=== PATIENT | male | born 1955 | race Caucasian/White ===

== ENCOUNTER 2017-02-19 23:36 | Inpatient (IN) ==
[2017-02-20 00:02] LABS: Basophils # 0.1 10*3/uL (0.0-0.2); Basophils % 0.8 % (0.0-0.8); Eosinophils # 0.3 10*3/uL (0.0-0.87); Eosinophils % 3.4 % (0.00-10.9); Hematocrit 47.4 VOL% (42.0-52.0); Hemoglobin 16.4 GM/DL (14.0-18.0); Immature Granulocytes % 0.7 %; Immature Granulocytes Absolute 0.07 #; Lymphocytes # 4.8 10*3/uL (1.4-4.0); Lymphocytes % 47.9 % (21.2-54.2); Mean Corpuscular HGB Conc 34.6 GM/DL (32-36); Mean Corpuscular Hemoglobin 32 PG (27-34); Mean Corpuscular Volume 92.4 FL (87-102); Mean Platelet Volume 9.9 FL (9.6-12.0); Monocytes # 0.6 10*3/uL (0.11-0.8); Monocytes % 6.2 % (1.7-12.7); Neutrophils # 4.1 10*3/uL (1.4-7.4); Platelet Count 218 T/CUMM (130-400); Red Blood Count 5.13 MC/CUMM (3.8-5.5); Red Cell Distribution Width 13.2 % (9.3-17.3); White Blood Count 9.9 T/CUMM (4-12)
[2017-02-20 00:07] LABS: INR 0.9; PT Patient Result 9.8 SECS
[2017-02-20 00:22] LABS: Albumin 3.5 G/DL (3.4-5.0); Bilirubin,Direct 0.1 MG/DL (0.0-0.20); Bilirubin,Indirect 0.4 MG/DL (0.0-1.0); Bilirubin,Total 0.5 MG/DL (0.2-1.0); Calcium 8.7 MG/DL (8.5-10.1); Magnesium 2.1 MG/DL (1.8-2.4); Osmolality,Calculated 285.1 MOS/KG (273-304); Potassium 3.6 MMOL/L (3.5-5.1); Total Protein 7.5 G/DL (6.4-8.3); Troponin I Only 0.017 NG/ML (0.00-0.045)
[2017-02-20] MEDS ORDERED: FUROSEMIDE 40 MG/4 ML VIAL IV STA (00:55)
--- NOTE | 2017-02-20 01:28 | Emergency Department Note ---
Jesika Alcocer Rolonda, am scribing for, and in the presence of, Sanchez Wood M.D. 00:08. Nina Alcocer Howard T, M.D., personally performed the services described in this documentation, ascribed by Linda Canchola in my presence, and it is both accurate and complete . Arrival - Arrival Chief Complaint: Shortness of Breath Stated Complaint: SOB ED Nursing Triage Note: Patient to ED via EMS with c/o SOB that onset suddenly at home while wearing his BIPAP. Patient coughed up pink frothy sputum [employer] and initial o2 sat on the bipap was 94% Patient arrives to ED with PEEP of 10 and o2 sat of 98% Mode of Arrival: Stretcher Limitations: No Limitations Source: Patient, Significant other (), EMS, Old Records Reviewed, RN Notes Reviewed Time Seen by Provider: 02/19/17 23:45 - History of Present Illness HPI Narrative: Pt is a 62 y/o male who was brought to the ED via EMS wearing BIPAP for further evaluation of SOB with an onset of minutes ago. Pt has a PMHx of Cardiovascular problems. states that they were at home in the bed and pt was wearing BIPAP mask when pt got up to use the restroom. stated that pt began to cough saying that he could not breathe and began to cough up "pink stuff". also noted that pt has been very drowsy 2-3 days. EMS stated that pt was given 2 NTG tablets [employer]; pt was given Lasix 40mg in ED. Pt stated that he has had the cough for over a month now. No other complaint/pain in ED. Onset (ago): minute(s) Consistency: constant Severity: moderate, severe Severity scale (1-10): 6 Allergies/Adverse Reactions: Allergies Allergy/AdvReac Type Severity Reaction Status Date / Time Rmxdpnp-Bpd-Tah Reductase Allergy Weakness Verified 02/19/17 23:49 Inhibitor Home Medications: Home Medications Medication Instructions Recorded Confirmed Type Aspirin EC Tab 81 mg PO DAILY 05/07/15 02/19/17 History Atenolol 1 tablet PO DAILY 05/07/15 02/19/17 History Baclofen Tab [Lioresal] 10 mg PO TID 05/07/15 02/19/17 History Clopidogrel [Plavix] 75 mg PO DAILY 05/07/15 02/19/17 History Duloxetine HCl [Cymbalta] 60 mg PO DAILY 05/07/15 02/19/17 History Zolpidem Tartrate [Ambien] 10 mg PO BEDTIME 05/07/15 02/19/17 History rOPINIRole [Requip] 3 mg PO TID 05/07/15 02/19/17 History Review of System - Review of System Constitutional: Absent: chills, fever Eyes: Absent: discharge, redness Head/Ears/Nose/Throat: Absent: earache, epistaxis Respiratory: Present: cough, respiratory distress Gastrointestinal: Absent: abdominal pain, nausea, vomiting, diarrhea Genitourinary male: Absent: dysuria Musculoskeletal: Absent: arm pain, back pain, leg pain, neck pain Skin: Absent: rash Neurological: Absent: headache, numbness Medical,Surgical,& Family Hx - Medical History Cardio: History of: CAD, Hypertension Psychological: History of: Depression Endocrine: History of: Dyslipidemia Rheumatology: History of;: Gout Respiratory: History of: Obstructive Sleep Apnea Gastrointestinal: History of: Bowel Obstruction, Diverticulitis/ Diverticulosis , GI Problems (IBS) Musculoskeletal: History of: Musculoskeletal Problems (RLS) Other: History of: Miscellaneous Medical Problems (rhabdomyolosis 03/19) - Surgical History Cardiac Surgeries: Sugical HX of: Cardiac Catheterization (stents in 2009) Abdominal Surgeries: Surgical HX of: Abdominal Surgery (bowel resection), Cholecystectomy, Hernia Repair (umbilical) Orthopedic Surgeries: Surgical HX of;: Orthopedic Surgery (rt rotator cuff 10/19) - Social History Smoking Status: Never smoker Frequency of Alcohol Use: None Type of Drug Use: None Exam Vital Signs: Vital Signs Temperature 96.5 F L 02/19/17 23:41 Pulse Rate 92 H 02/19/17 23:41 Respiratory Rate 23 02/19/17 23:41 Blood Pressure 147/104 02/19/17 23:41 O2 Sat by Pulse Oximetry 98 02/19/17 23:41 - General General appearance: alert, in no apparent distress, obese - Head Head exam: Present: atraumatic, normocephalic - Eye Eye exam: Present: PERRL, EOMI - ENT ENT exam: Present: mucous membranes moist. Absent: mucous membranes dry - Neck Neck exam: Present: full ROM. Absent: tenderness - Chest Chest inspection: Present: symmetric chest wall rise. Absent: tenderness - Respiratory Respiratory exam: Present: rales (bilaterally), respiratory distress (acute) - Cardiovascular Cardiovascular exam: Present: regular rate, normal rhythm, normal heart sounds. Absent: bradycardia - Abdominal Exam Abdominal exam: Present: soft, normal bowel sounds. Absent: tenderness Course Course Narrative: Medical decision making: History and exam suggest pulmonary edema although patient states he is actually feeling improved with Lasix and CPAP. His vital signs have remained stable and he denies feeling fatigued. We have discussed with hospitalist for admission and deferred intubation for the time being. - Reevaluation(s) Reevaluation #1: Patient continues to feel improved, not worse vital signs continue to improve, he requested we will remove the CPAP, CPAP was removed he was placed on nasal cannula and is saturations remain in the upper 90% and he appeared to remain comfortable and states that he feels much better. His exam is significant for continued crackles diffusely lungs bilaterally. Have noted his d-dimer is mildly elevated however he continues to clinically improve and I do not believe a CT scan of his chest is completely necessary at this time or would be a good idea with his recent respiratory distress therefore will defer further evaluation if indicated to hospitalist. Results - Labs CBC & BMP: 02/19/17 23:44 02/19/17 23:44 Lab Results: I have reviewed the patients labs Labs: Laboratory Tests 02/19/17 02/19/17 02/19/17 23:44 23:44 23:44 WBC 9.9 RBC 5.13 Hgb 16.4 Hct 47.4 Plt Count 218 Lymph # (Auto) 4.8 H INR 0.9 PT Patient/Control Mix 9.8 D-Dimer, Quantitative Sodium 142 Potassium 3.6 Chloride 107 Carbon Dioxide 26 BUN 14 GFR Calculation 85 Glucose 140 H B-Natriuretic Peptide 02/19/17 02/19/17 23:44 23:44 WBC RBC Hgb Hct Plt Count Lymph # (Auto) INR PT Patient/Control Mix D-Dimer, Quantitative 1.3 Sodium Potassium Chloride Carbon Dioxide BUN GFR Calculation Glucose B-Natriuretic Peptide 108 H - EKG EKG results: interpreted by ERMD, sinus rhythm, normal axis, normal QRS, normal ST/T, no acute changes (HR 87) Critical Care Time Critical Care Time: Yes Total Critical Care Time: 25 Attestation: Resp distress monitoring vitals and pt status, discussing intubation vs CPAP, adjusting CPAP Disposition Clinical Impression: Respiratory distress, Pulmonary edema Case discussed with: patient, patient's family Disposition: Still a Patient Condition: Guarded Time of Disposition: 00:37
[2017-02-20] MEDS ORDERED: FUROSEMIDE 40 MG/4 ML VIAL ONE (01:29)
--- NOTE | 2017-02-20 01:48 | Hospitalist History & Physical ---
Assessment and Plan (1) Shortness of breath Status: Acute Current Visit: Yes (2) COPD exacerbation Status: Acute Current Visit: Yes (3) History of obstructive sleep apnea Status: Acute Current Visit: Yes (4) History of coronary artery disease Status: Acute Current Visit: Yes (5) Respiratory distress Status: Acute Current Visit: Yes (6) Pulmonary edema Status: Acute Assessment and plan: Our plan for this patient will be admitting him to our service. Patient is to be on a monitor. His history is consistent with flash pulmonary edema. He does have crackles on exam. He is received 80 of Lasix. He is he is not on diuretics at home. He also sounds like COPD and per review of his x-ray there is appearance of scarring that is gone back for several years. Patient denies a history of COPD and has never smoked. He has both crackles and rhonchi on exam currently. I will schedule him some breathing treatments put him on some antibiotics and monitor how he improves. I am going to ask for a pulmonary consult BNP was only mildly elevated barely over 100. He does not have a history of heart failure. And he is compliant with his CPAP. Current Visit: Yes History of Present Illness Chief complaint: Shortness of breath History of present illness: Mr. Quintero is a 62 year old male with past medical history significant for coronary artery disease, hypertension, increased cholesterol, restless leg syndrome, irritable bowel syndrome and obstructive sleep apnea who was in his normal state of health till today. Patient said he has been, sleepy lately has been nodding off real easy. He has not been drinking as much coffee as he used to and this would be attributed to the symptoms 2. He started having a coughing spell tonight. He said he has had this chronic cough for about 2 months. He was coughing up some P tinged sputum. He could not catch his breath and could not take a deep breath. He got concerned that he was going to get in respiratory distress and called out to his daughter and had her call EMS. Patient was brought in our emergency room with significant respiratory distress. He received Lasix in the ER and in route. Patient pretty much feels better. I was consulted to admit him to the emergency room. Home Medications Medication Instructions Recorded Confirmed Type Aspirin EC Tab 81 mg PO DAILY 05/07/15 02/19/17 History Atenolol 1 tablet PO DAILY 05/07/15 02/19/17 History Baclofen Tab [Lioresal] 10 mg PO TID 05/07/15 02/19/17 History Clopidogrel [Plavix] 75 mg PO DAILY 05/07/15 02/19/17 History Duloxetine HCl [Cymbalta] 60 mg PO DAILY 05/07/15 02/19/17 History Zolpidem Tartrate [Ambien] 10 mg PO BEDTIME 05/07/15 02/19/17 History rOPINIRole [Requip] 3 mg PO TID 05/07/15 02/19/17 History Allergies Allergy/AdvReac Type Severity Reaction Status Date / Time Sjbbwnh-Zob-Eld Reductase Allergy Weakness Verified 02/19/17 23:49 Inhibitor Medical,Surgical,& Family Hx - Medical History Cardio: History of: CAD, Hypertension Psychological: History of: Depression Endocrine: History of: Dyslipidemia Rheumatology: History of;: Gout Respiratory: History of: Obstructive Sleep Apnea Gastrointestinal: History of: Bowel Obstruction, Diverticulitis/ Diverticulosis , GI Problems (IBS) Musculoskeletal: History of: Musculoskeletal Problems (RLS) Other: History of: Miscellaneous Medical Problems (rhabdomyolosis 03/19) - Surgical History Cardiac Surgeries: Sugical HX of: Cardiac Catheterization (stents in 2009) Abdominal Surgeries: Surgical HX of: Abdominal Surgery (bowel resection), Cholecystectomy, Hernia Repair (umbilical) Orthopedic Surgeries: Surgical HX of;: Orthopedic Surgery (rt rotator cuff 10/19) - Family History Family History: Reports;: Family Heart Disease - Social History Smoking Status: Never smoker Frequency of Alcohol Use: None Type of Drug Use: None 12 point system: reviewed and no additional remarkable complaints except as stated Exam - Constitutional Vitals: Period Temp Pulse Resp BP Sys/Benjamin Pulse Ox Last 24 Hr 96.5 F-96.5 F 92-92 23-24 142-147/104-104 98 General appearance: over weight - Eye Eye exam: Present: EOMI Pupils: Present: MIRLANDE - ENT ENT exam: Present: normal exam - Neck Neck exam: Present: normal inspection - Respiratory Respiratory exam: Present: rales, rhonchi, wheezes (Slight) - Cardiovascular Cardiovascular exam: Present: regular rate and rhythm - GI/Abdominal GI/Abdominal exam: Present: normal bowel sounds - Extremities Exam Extremities exam: Present: normal inspection - Back Exam Back exam: Present: normal inspection - Neurological Exam Neurological exam: Present: alert - Psychiatric Psychiatric exam: Present: normal affect - Skin Skin exam: Present: normal color Results - Labs CBC & BMP: 02/19/17 23:44 02/19/17 23:44
[2017-02-20] MEDS ORDERED: ONDANSETRON 4 MG/2 ML VIAL IV PRN (02:03)
[2017-02-20] MEDS ORDERED: ACETAMINOPHEN 325 MG TABLET PO PRN (02:03)
[2017-02-20] MEDS ORDERED: cefTRIAXone 1,000 MG in SODIUM CHLORIDE 0.9% 100 ML IV SCH (03:00)
[2017-02-20 06:26] LABS: Basophils # 0.1 10*3/uL (0.0-0.2); Basophils % 0.4 % (0.0-0.8); Eosinophils # 0.1 10*3/uL (0.0-0.87); Eosinophils % 1.1 % (0.00-10.9); Hematocrit 45.4 VOL% (42.0-52.0); Hemoglobin 15.7 GM/DL (14.0-18.0); Immature Granulocytes % 0.6 %; Immature Granulocytes Absolute 0.08 #; Lymphocytes # 2.7 10*3/uL (1.4-4.0); Lymphocytes % 21.5 % (21.2-54.2); Mean Corpuscular HGB Conc 34.6 GM/DL (32-36); Mean Corpuscular Hemoglobin 32 PG (27-34); Mean Corpuscular Volume 92.3 FL (87-102); Mean Platelet Volume 9.5 FL (9.6-12.0); Monocytes # 0.9 10*3/uL (0.11-0.8); Monocytes % 7.1 % (1.7-12.7); Neutrophils # 8.7 10*3/uL (1.4-7.4); Neutrophils % 69.3 % (38.7-73.9); Platelet Count 197 T/CUMM (130-400); Red Blood Count 4.92 MC/CUMM (3.8-5.5); Red Cell Distribution Width 13.4 % (9.3-17.3); White Blood Count 12.5 T/CUMM (4-12)
[2017-02-20 07:01] LABS: Albumin 3.5 G/DL (3.4-5.0); Bilirubin,Total 1.3 MG/DL (0.2-1.0); Osmolality,Calculated 287.8 MOS/KG (273-304); Potassium 4.1 MMOL/L (3.5-5.1)
--- NOTE | 2017-02-20 07:47 | XRay Report ---
Exam: XR chest 1V portable Indication: Shortness of breath Comparison study: 11/17/2010 radiograph Findings: Cardiac silhouette is enlarged, similar to prior diffuse mild interstitial prominence is noted with perihilar calcific densities compatible with calcified granulomas. There is no definite focal consolidation. There is no focal consolidation, pneumothorax or pleural effusion identified. Impression: Cardiomegaly with findings suggestive of chronic interstitial scarring and evidence of prior granulomatous disease. Otherwise, no focal consolidation or other acute process. PROCEDURE INTERPRETED AT [facility] DEPARTMENT OF RADIOLOGY Final Report Signed by: Yovani Faith
[2017-02-20] MEDS: ALBUTEROL/IPRATROPIUM 3 ML NEB RESP TX SCH ×2 (07:58→12:55)
--- NOTE | 2017-02-20 08:15 | EKG Report ---
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
[2017-02-20] MEDS ORDERED: ATENOLOL 25 MG TABLET PO SCH (09:00)
[2017-02-20] MEDS ORDERED: CLOPIDOGREL 75 MG TABLET PO SCH (09:00)
[2017-02-20] MEDS ORDERED: ASPIRIN EC 81 MG TABLET PO SCH (09:00)
[2017-02-20] MEDS ORDERED: BACLOFEN 10 MG TABLET PO SCH (09:00)
[2017-02-20] MEDS ORDERED: DULoxetine 30 MG CAPSULE PO SCH (09:00)
[2017-02-20] MEDS ORDERED: predniSONE 20 MG TABLET PO SCH (09:00)
[2017-02-20] MEDS ORDERED: rOPINIRole 1 MG TABLET PO SCH (09:00)
[2017-02-20] MEDS ORDERED: methylPREDNISolone SOD SUC 40 MG/1 ML VIAL IV SCH (10:30)
[2017-02-20] MEDS ORDERED: MONTELUKAST 10 MG TABLET PO SCH (10:30)
[2017-02-20] MEDS ORDERED: PANTOPRAZOLE 40 MG TABLET PO SCH (10:30)
[2017-02-20 11:06] VITALS: BP 123/73
--- NOTE | 2017-02-20 11:13 | Discharge Summary ---
Hospital Course - Hospital Course Hospital Course: Mr. Quintero is a 62 year old male with past medical history significant for coronary artery disease, hypertension, increased cholesterol, restless leg syndrome, irritable bowel syndrome and obstructive sleep apnea that presented to the ED on 02/20 with complaints of shortness of breath. Pt. also reported a productive cough. CXR was performed and revealed cardiomegaly with chronic interstitial scarring. Pt. was found to be in respiratory distress. Pt. was admitted and diuresed with Lasix. Pulmonary was consulted to evaluate. Pt. was started on Singulair and Protonix daily. Pt.'s condition has improved and is stable to be discharged. Specialty Discharge - Follow Up or Referrals Follow up with: Cindy Ray MD [Physician] - 1 Week (We will call you with your appointment date and time.) Discharge Plan - Discharge Data Disposition: Disch To Home/Self Care Condition at Discharge: Stable Discharge Diet: advance to your usual diet Activity: resume usual activities as tolerated Hygiene: no restrictions Weight Bearing at Discharge: full weight bearing Contact your physician if you experience:: fever over 101, Nausea/Vomiting, Shortness of breath, pain uncontrolled by pain medications - Discharge Medications Continue rOPINIRole [Requip] 3 mg PO TID Duloxetine HCl [Cymbalta] 60 mg PO DAILY Clopidogrel [Plavix] 75 mg PO DAILY Baclofen Tab [Lioresal] 10 mg PO TID Atenolol 1 tablet PO DAILY Aspirin EC Tab 81 mg PO DAILY Zolpidem Tartrate [Ambien] 10 mg PO BEDTIME Cetirizine/Pseudoephed 5-120 [ZyrTEC D Tab] 1 tablet PO ONCE PRN PRN Reason: Congestion - Follow Up or Referral Follow Up: Cindy Ray MD [Physician] - 1 Week (We will call you with your appointment date and time.) - Forms/Instructions Instructions: Pulmonary Edema (DC), Chronic Obstructive Pulmonary Disease (DC) Exam - Constitutional Vitals: Period Temp Pulse Resp BP Sys/Benjamin Pulse Ox Last 24 Hr 96.5 F-98.1 F 62-92 18-24 101-147/58-104 91-99 General appearance: over weight - Head Head exam: Present: normocephalic, atraumatic - Eye Eye exam: Present: EOMI Pupils: Present: MIRLANDE - ENT ENT exam: Present: normal oropharynx - Respiratory Respiratory exam: Present: clear to auscultation bilaterally - Cardiovascular Cardiovascular exam: Present: regular rate and rhythm - GI/Abdominal GI/Abdominal exam: Present: normal bowel sounds, soft - Extremities Exam Extremities exam: Present: full ROM, other (Noted nodular joints and the digits suggesting of gout arthropathy) - Neurological Exam Neurological exam: Present: alert, oriented X3, CN II-XII intact - Psychiatric Psychiatric exam: Present: normal affect, normal mood - Skin Skin exam: Present: normal color, warm, dry Discharge Results Labs on day of discharge: Labs from last 24 hours 02/20/17 02/20/17 02/19/17 06:17 06:17 23:44 WBC 12.5 H RBC 4.92 Hgb 15.7 Hct 45.4 MCV 92.3 MCH 32 MCHC 34.6 RDW 13.4 Plt Count 197 MPV 9.5 L Neut % (Auto) 69.3 Lymph % (Auto) 21.5 Gila % (Auto) 7.1 Eos % (Auto) 1.1 Baso % (Auto) 0.4 Neut # (Auto) 8.7 H Lymph # (Auto) 2.7 Gila # (Auto) 0.9 H Eos # (Auto) 0.1 Baso # (Auto) 0.1 Immature Gran % 0.6 Nucleated RBC % 0.0 Immature Gran # 0.08 Nucleated RBCs # 0.00 INR PT Patient/Control Mix D-Dimer, Quantitative 1.3 Sodium 144 Potassium 4.1 Chloride 104 Carbon Dioxide 32 Anion Gap 12.1 BUN 15 Creatinine 1.00 GFR Calculation 96 BUN/Creatinine Ratio 15.00 Glucose 108 H Calculated Osmolality 287.8 Calcium 9.0 Magnesium Total Bilirubin 1.30 H Direct Bilirubin Indirect Bilirubin AST 30 ALT 36 Alkaline Phosphatase 82 Troponin I B-Natriuretic Peptide Total Protein 7.0 Albumin 3.5 Globulin 3.5 Albumin/Globulin Ratio 1.0 L 02/19/17 02/19/17 02/19/17 23:44 23:44 23:44 WBC RBC Hgb Hct MCV MCH MCHC RDW Plt Count MPV Neut % (Auto) Lymph % (Auto) Gila % (Auto) Eos % (Auto) Baso % (Auto) Neut # (Auto) Lymph # (Auto) Gila # (Auto) Eos # (Auto) Baso # (Auto) Immature Gran % Nucleated RBC % Immature Gran # Nucleated RBCs # INR 0.9 PT Patient/Control Mix 9.8 D-Dimer, Quantitative Sodium 142 Potassium 3.6 Chloride 107 Carbon Dioxide 26 Anion Gap 12.6 BUN 14 Creatinine 1.10 GFR Calculation 85 BUN/Creatinine Ratio 12.00 Glucose 140 H Calculated Osmolality 285.1 Calcium 8.7 Magnesium 2.1 Total Bilirubin 0.50 Direct Bilirubin 0.10 Indirect Bilirubin 0.4 AST 30 ALT 35 Alkaline Phosphatase 86 Troponin I 0.017 B-Natriuretic Peptide 108 H Total Protein 7.5 Albumin 3.5 Globulin Albumin/Globulin Ratio 02/19/17 23:44 WBC 9.9 RBC 5.13 Hgb 16.4 Hct 47.4 MCV 92.4 MCH 32 MCHC 34.6 RDW 13.2 Plt Count 218 MPV 9.9 Neut % (Auto) 41.0 Lymph % (Auto) 47.9 Gila % (Auto) 6.2 Eos % (Auto) 3.4 Baso % (Auto) 0.8 Neut # (Auto) 4.1 Lymph # (Auto) 4.8 H Gila # (Auto) 0.6 Eos # (Auto) 0.3 Baso # (Auto) 0.1 Immature Gran % 0.7 Nucleated RBC % 0.0 Immature Gran # 0.07 Nucleated RBCs # 0.00 INR PT Patient/Control Mix D-Dimer, Quantitative Sodium Potassium Chloride Carbon Dioxide Anion Gap BUN Creatinine GFR Calculation BUN/Creatinine Ratio Glucose Calculated Osmolality Calcium Magnesium Total Bilirubin Direct Bilirubin Indirect Bilirubin AST ALT Alkaline Phosphatase Troponin I B-Natriuretic Peptide Total Protein Albumin Globulin Albumin/Globulin Ratio DS: Provider Date of admission: 02/20/17 02:04 Primary care physician: Spencer Courtney Attending physician on admission: Graham Higginbotham MD Consults: 02/20/17 02:03 Consult to Physician [CONS] Routine Comment: Consulting Provider: Man Carpenter Consult to Specialist Group: Pulmonology When should Consulting Provider be notified: In am Person Notified: ONESIMO Date Notified: 02/20/17 Time Notified: 09:13 Discharging clinician: Anil Encarnacion MD
--- NOTE | 2017-02-20 11:49 | Pulmonology Consult Note ---
History of Present Illness Chief complaint: Shortness of breath History of present illness: Alfonzo Garnica, [facility], acting as scribe for Dr. Man Carpenter Mr. Quintero is a 62-year-old white male who we have been asked to see in pulmonary consultation for evaluation and treatment. The request for consultation was made by Dr. Higginbotham. The patient was seen today along with his . His primary care physician is Dr. Courtney. His air tool operator is Dr. Antoine. The patient presented to [facility] emergency room on 02/20/2017 with complaints of increased shortness of breath. He reported at that time coughing up pink sputum. The patient reported that he had a cough for over a month. Of note, the patient is on chronic Plavix therapy secondary to cardiac stent. BNP at admission was only 108. INR 0.9. Chest x-ray showed cardiomegaly, but was otherwise fairly benign. Nonetheless, given his acute illness and multiple comorbidities, he was admitted for further evaluation and care. He reports increased shortness of breath and dyspnea on exertion which is recently worsened, but has been present for approximately 1 month. He has heard himself wheeze. He denies any cardiac angina or palpitations. He has known obstructive sleep apnea and is very compliant with his CPAP/BiPAP machine. He reports reflux, but denies persistent solid dysphagia. That said, in speaking with the patient it certainly seems that there could be an element of stricture. There is been no bleeding from any site. No change in bowel or bladder habits. No TIA symptoms or syncope. All other systems were reviewed and were negative. Allergies: Statins Home medications: See list Hospital medications: See list Past medical history: Positive for anxiety, coronary artery disease, depression , fatigue, fibromyalgia, gastroesophageal reflux disease, hyperlipidemia, hypertension, hyperuricemia, osteoarthritis, sleep apnea, hypothyroidism, history of bowel obstruction requiring partial colectomy, restless leg syndrome , and history of rhabdomyolysis in March 2013. Surgical history: Cardiac cath 05/29/2009 which showed severe single-vessel coronary artery disease and the patient had a PCI to the proximal LAD. He also had a partial colectomy in the past. Rotator cuff surgery October 2014. Umbilical hernia repair. Cholecystectomy. Family history: Positive for heart disease in his maternal grandfather and hyperlipidemia in his mother. He also reports his mother has significant gastroesophageal reflux disease. Social history: Patient is . His is present. He denies the use of alcohol or tobacco. Chest x-ray. Done 02/19/2017. My interpretation. Heart size is top normal. There are mildly increased markings in the bases. Pulmonary arteries are top normal. There is no hilar adenopathy. Mediastinum is not enlarged. There are no masses, infiltrates, or pulmonary edema. Laboratory: White count is 12,500 with 69.3% segs, 21.5% lymphs, 10.1% monos; H& H 15.7/45.4 with normal indices and normal red blood cell distribution width; platelet count 197,000; INR 0.9; d-dimer 1.3; creatinine 1.00, BUN 15, sodium 144, potassium 4.1, magnesium 2.1; liver function tests within normal limits; total bilirubin 1.30; BNP 108; troponin 0.017; calcium 9.0, albumin 3.5, total protein 7.0 Home Medications Medication Instructions Recorded Confirmed Type Aspirin EC Tab 81 mg PO DAILY 05/07/15 02/20/17 History Atenolol 1 tablet PO DAILY 05/07/15 02/20/17 History Baclofen Tab [Lioresal] 10 mg PO TID 05/07/15 02/20/17 History Clopidogrel [Plavix] 75 mg PO DAILY 05/07/15 02/20/17 History Duloxetine HCl [Cymbalta] 60 mg PO DAILY 05/07/15 02/20/17 History Zolpidem Tartrate [Ambien] 10 mg PO BEDTIME 05/07/15 02/20/17 History rOPINIRole [Requip] 3 mg PO TID 05/07/15 02/20/17 History Cetirizine/Pseudoephed 5-120 1 tablet PO ONCE PRN 02/20/17 02/20/17 History [ZyrTEC D Tab] Allergies Allergy/AdvReac Type Severity Reaction Status Date / Time [id number] Reductase Allergy Weakness Verified 02/19/17 23:49 Inhibitor Exam (Pulmonay) H&P - Constitutional Vitals: Period Temp Pulse Resp BP Sys/Benjamin Pulse Ox Last 24 Hr 96.5 F-98.1 F 62-92 18-24 101-147/58-104 91-99 Exam: Psych: Oriented x 3; a pleasant and cooperative patient HEENT: Pupils, irises, sclera, conjunctiva, and eyelids are normal. The face is symmetrical without rash or masses. Lips, tongue, buccal mucosa, soft and hard palates, and pharynx are WNL Neck: Symmetrical. Thyroid was not palpated. Lymphatics: No submandibular, cervical, or supraclavicular adenopathy Chest: Symmetrical with large airway wheeze on forced expiration; no high- pitched peripheral wheeze CV: Regular without murmur, rub, or gallop Arterial: Carotids with a good upstroke. There is no bruit. Upper extremity pulses are palpable. Lower extremity pulses are palpable. Venous: Exam of the neck, upper, and lower extremities is normal Abd: No appreciable organomegaly, masses, tenderness, or bruit; Bowel sounds are positive 4; The aorta was not palpated /Rectal: Deferred Extremities: No clubbing, cyanosis, edema, or obvious DVT; bilateral ANANT hose are in use Skin: No cancerous or infectious lesions of the exposed, examined skin; the perineal area was not examined M/S: Age appropriate loss of the normal curvature of the cervical, thoracic, and lumbar spine; note, the patient states that approximately 20 years ago he was diagnosed with ALS, but has more recently been told he does not have ALS but rather muscle fasciculation syndrome. There is mild wasting of the right leg muscles. Neurological: Cranial nerves are intact, Long tract motor function is intact; Sensory exam was not done; gait was not tested. The remainder of the exam was noncontributory. Impression: #1: Acute shortness of breath with wheezing most likely secondary to gastroesophageal reflux disease. Consider other causes. #2: Muscle fasciculation syndrome #3: Coronary artery disease #4: Hyperlipidemia #5: Hypertension #6: Fibromyalgia #7: Obstructive sleep apnea #8: Statin intolerance #9: See past history Plan: #1: Start Protonix 40 mg daily #2: Start Singulair 10 mg daily #3: Hold oral prednisone, and start Solu-Medrol 40 mg IV every 12 hours #4: We attempted to get complete pulmonary function test on this patient, however we have been informed that the pulmonary function machine here at [facility] is broken. No timeline for repair could be given. #5: See orders We appreciate this consult and will follow along with you. Medical,Surgical,& Family Hx - Medical History Cardio: History of: CAD, Hypertension Psychological: History of: Depression Endocrine: History of: Dyslipidemia, Thyroid Disorder (hypothyroidism) Rheumatology: History of;: Gout Respiratory: History of: Obstructive Sleep Apnea Gastrointestinal: History of: Bowel Obstruction, Diverticulitis/ Diverticulosis , Polyps, GI Problems (IBS) Musculoskeletal: History of: Musculoskeletal Problems (RLS, arthritis) Other: History of: Miscellaneous Medical Problems (rhabdomyolosis 03/19) - Surgical History Cardiac Surgeries: Sugical HX of: Cardiac Catheterization (stents in 2009) Neurologic Surgeries: Patient denies: Neurologic Surgery Abdominal Surgeries: Surgical HX of: Abdominal Surgery (bowel resection), Cholecystectomy, Hernia Repair (umbilical) Orthopedic Surgeries: Surgical HX of;: Orthopedic Surgery (rt rotator cuff 10/19) - Family History Family History: Reports;: Family Heart Disease - Social History Smoking Status: Never smoker Frequency of Alcohol Use: None Type of Drug Use: None Results - Labs CBC & BMP: 02/20/17 06:17 02/20/17 06:17 Specialty Discharge - Follow Up or Referrals Follow up with: Cindy Ray MD [Physician] - 1 Week
[2017-02-20] MEDS ORDERED: ZALEPLON 5 MG CAPSULE PO SCH (21:00)
--- NOTE | 2017-02-21 08:31 | Physician Query Form ---
CLICK EDIT DOCUMENT TO SELECT QUERY ANSWER --> OK --> SIGN Kylah Sanchez RN, CCDS Certified Clinical Furniture Mechanic W) [phone] (f) [phone] [email or web address]: Make your selection(s) from the choices in EACH section by typing an "x" and enter comments in the comment section. Please use your independent medical judgment in providing your response. This request does not imply that any particular answer is desired or expected. CLINICAL INDICATORS: (Providers should not edit this section) The medical record indicates that the patient was admitted with SOB, "pt was wearing BIPAP", cough up "pink stuff", and the patient was treated with Lasix, Duoneb, Ceftriaxone. As the attending MD can you please clarify the most likely cause of the SOB. Per pulmonary consultation-----"Acute shortness of breath with wheezing most likely secondary to gastroesophageal reflux disease" Based on the above, could you clarify the appropriate diagnosis, if significant , that supports the above abnormalities and additional evaluation, monitoring, and/or treatment rendered: ( ) SOB due to Acute Pulmonary Edema ( ) SOB due to Acute COPD exacerbation ( ) SOB due to Acute Aspiration Bronchitis ( x) SOB due to aspiration secondary to gastroesophageal reflux____ ( ) Other, please specify: ( ) Clinically unable to determine COMMENTS: PLEASE ALSO DOCUMENT RESPONSE IN PROGRESS NOTES AND/OR DISCHARGE SUMMARY Use of terms such as suspected, likely, or probable (associated with a specific diagnosis that is being evaluated, monitored, or treated as if it exists) are acceptable and can be restated in the discharge summary if not ruled out. MTDD
== END 2017-02-20 14:14 | disposition home or self-care (01) | DRG 392 ==
LOC: EDBD → EDUNIT# → N.ED 23:36 → N.EDINP 02-20 02:03 → SUATTDRO 02-20 02:03 → N.5E 02-20 02:43
PROVIDERS: ADMIT Internal Medicine; ATTEND Internal Medicine Infectious Disease

== ENCOUNTER 2019-09-04 10:05 | Observation (INO) ==
[2019-09-04] MEDS ORDERED: SODIUM CHLORIDE 0.9% 500 ML IV STA (10:08)
[2019-09-04 10:26] LABS: Basophils % 0.6 % (0.0-0.8); Eosinophils # 0.2 10*3/uL (0.0-0.87); Eosinophils % 2.4 % (0.00-10.9); Hematocrit 42.1 VOL% (42.0-52.0); Immature Granulocytes % 0.5 %; Immature Granulocytes Absolute 0.03 #; Lymphocytes # 1.9 10*3/uL (1.4-4.0); Lymphocytes % 28.8 % (21.2-54.2); Mean Corpuscular HGB Conc 33.3 GM/DL (32-36); Mean Corpuscular Volume 86.8 FL (87-102); Mean Platelet Volume 10.3 FL (9.6-12.0); Monocytes % 9.5 % (1.7-12.7); Neutrophils % 58.2 % (38.7-73.9); Platelet Count 170 T/CUMM (130-400); Red Blood Count 4.85 MC/CUMM (3.8-5.5); Red Cell Distribution Width 16.4 % (9.3-17.3); White Blood Count 6.6 T/CUMM (4-12)
[2019-09-04 10:47] LABS: Albumin 3.5 G/DL (3.4-5.0); Bilirubin,Total 0.7 MG/DL (0.2-1.0); Osmolality,Calculated 280.5 MOS/KG (273-304); Total Protein 6.9 G/DL (6.4-8.3)
[2019-09-04] MEDS ORDERED: ONDANSETRON 4 MG/2 ML VIAL IV PRN (12:33)
[2019-09-04] MEDS ORDERED: ACETAMINOPHEN 325 MG TABLET PO PRN (12:33)
[2019-09-04] MEDS ORDERED: FLUTICASONE 50 MCG NASAL SPRAY 16 GM BOTTLE BOTH NARES PRN (12:34)
[2019-09-04] MEDS: SODIUM CHLORIDE 0.9% 1,000 ML IV SCH (14:11)
[2019-09-04] MEDS ORDERED: POTASSIUM CHLORIDE 20 MEQ TABLET PO ONE (14:13)
[2019-09-04] MEDS ORDERED: rOPINIRole 4 MG TABLET PO SCH (15:00)
[2019-09-04 15:07] LABS: Apearance,Urine CLEAR (Clear); Bilirubin,Urine Negative (Negative); Blood, Urine Negative (Negative); Glucose,Urine (UA) Negative (Negative); Ketones,Urine Negative (Negative); Nitrite,Urine Negative (Negative); Protein,Urine Negative; RBC,Urine 1 /HPF (0-4); Urine Color Yellow (Yellow); Urine Specific Gravity 1.008 (1.001-1.035); Urine Urobilinogen < 2.0 EU/DL (0.2-1.0); WBC,Urine 1 /HPF (0-6)
[2019-09-04 15:22] LABS: Barbiturates Screen,Urine Negative (Negative); Benzodiazepines Screen,Urine Negative (Negative); Cannabinoid Screen,Urine Negative (Negative); Opiate Screen,Urine Negative (Negative); Phencyclidine Screen,Urine Negative (Negative)
[2019-09-04] MEDS: ACETAMINOPHEN 325 MG TABLET PO SCH ×2 (16:59→21:41)
[2019-09-04] MEDS: GABAPENTIN 100 MG CAPSULE PO SCH ×2 (16:59→21:38)
[2019-09-04 17:14] LABS: Troponin I 0.038 NG/ML (0.00-0.045); Troponin I 0.044 NG/ML (0.00-0.045)
[2019-09-04] MEDS ORDERED: MORPHINE 4 MG/1 ML VIAL IV PRN (17:31)
[2019-09-04] MEDS ORDERED: ASPIRIN EC 81 MG TABLET PO SCH (19:00)
[2019-09-04] MEDS ORDERED: ATORVASTATIN 10 MG TABLET PO SCH (19:00)
[2019-09-04] MEDS ORDERED: DULoxetine 30 MG CAPSULE PO SCH (19:00)
[2019-09-04] MEDS ORDERED: CLOPIDOGREL 75 MG TABLET PO SCH (19:00)
[2019-09-04] MEDS ORDERED: ZALEPLON 5 MG CAPSULE PO SCH (21:00)
[2019-09-04] MEDS: rOPINIRole 1 MG TABLET PO SCH (21:37)
[2019-09-04] MEDS: atenoloL 25 MG TABLET PO SCH (21:41)
[2019-09-05] MEDS: SODIUM CHLORIDE 0.9% 1,000 ML IV SCH ×2 (03:55→16:05)
[2019-09-05 05:44] LABS: Basophils % 0.5 % (0.0-0.8); Eosinophils # 0.3 10*3/uL (0.0-0.87); Eosinophils % 4.2 % (0.00-10.9); Hematocrit 40.7 VOL% (42.0-52.0); Hemoglobin 13.2 GM/DL (14.0-18.0); Immature Granulocytes % 0.3 %; Immature Granulocytes Absolute 0.02 #; Lymphocytes # 2.7 10*3/uL (1.4-4.0); Lymphocytes % 36.2 % (21.2-54.2); Mean Corpuscular HGB Conc 32.4 GM/DL (32-36); Mean Corpuscular Volume 87.9 FL (87-102); Mean Platelet Volume 10.8 FL (9.6-12.0); Monocytes % 8.9 % (1.7-12.7); Neutrophils % 49.9 % (38.7-73.9); Platelet Count 163 T/CUMM (130-400); Red Blood Count 4.63 MC/CUMM (3.8-5.5); Red Cell Distribution Width 16.7 % (9.3-17.3); White Blood Count 7.5 T/CUMM (4-12)
[2019-09-05] MEDS ORDERED: LEVOTHYROXINE 25 MCG TABLET PO SCH (07:00)
[2019-09-05 07:12] LABS: Bilirubin,Total 0.4 MG/DL (0.2-1.0); Calcium 8.3 MG/DL (8.5-10.1); Osmolality,Calculated 277.7 MOS/KG (273-304); Risk Ratio 3.09; Thyroid Stimulating Hormone 3.95 uIU/ml (0.358-3.74); Total Protein 6.6 G/DL (6.4-8.3); VLDL CHOLESTEROL 24.8 MG/DL
[2019-09-05] MEDS: ACETAMINOPHEN 325 MG TABLET PO SCH (08:13)
[2019-09-05] MEDS: rOPINIRole 1 MG TABLET PO SCH ×2 (08:14→16:00)
[2019-09-05] MEDS: GABAPENTIN 100 MG CAPSULE PO SCH ×2 (08:15→16:00)
[2019-09-05] MEDS: atenoloL 25 MG TABLET PO SCH (08:16)
[2019-09-05] MEDS ORDERED: atenoloL 25 MG TABLET PO SCH (09:00)
[2019-09-05] MEDS ORDERED: PANTOPRAZOLE 40 MG TABLET PO SCH (09:00)
[2019-09-05] MEDS ORDERED: ENOXAPARIN 40 MG/0.4 ML SYRINGE SUBCUT SCH (09:00)
[2019-09-05] MEDS ORDERED: TAMSULOSIN 0.4 MG CAPSULE PO SCH (09:00)
[2019-09-05 16:31] VITALS: BP 111/74
== END 2019-09-05 16:23 | disposition home or self-care (01) ==
LOC: EDUNIT# → EDBD → N.EDINP 10:05 → N.ED 10:05 → N.TELEN 15:12
PROVIDERS: ADMIT Internal Medicine; ATTEND Internal Medicine